=== PATIENT | male | born 1965 ===

== ENCOUNTER 2023-11-07 08:30 | Inpatient (IN) | payer OTHER ==
[2023-11-07] MEDS ORDERED: TOPROL XL25 M1 (09:25)
[2023-11-07] MEDS ORDERED: LEVO-T50 MCG PO (09:25)
[2023-11-07] MEDS ORDERED: BUPROPION XL450 MG PO (09:25)
[2023-11-07 09:26] LABS: HEMATOCRIT 37.2 % (39.0-48.0); MEAN CELL VOLUME 97.3 fL (80.0-100.00); MEAN CORPUSCULAR HEMOGLOBIN 34.1 pg (27.00-32.0); PLATELET COUNT 226 K/uL (150-450); RED BLOOD COUNT 3.82 M/uL (4.00-6.00)
[2023-11-07 09:28] LABS: PH,URINE 5.5 (5.0-8.0); URINE APPEARANCE Clear; URINE BILIRRUBIN Moderate (NEGATIVE); URINE BLOOD Small; URINE COLOR Dark Yellow; URINE GLUCOSE Negative (NEGATIVE); URINE KETONE Negative (NEGATIVE); URINE LEUKOCYTE Trace; URINE NITRATE Negative; URINE PROTEIN 30 (NEGATIVE)
[2023-11-07 09:29] LABS: URINE BACTERIA 32.7 uL (0.0-1933); URINE EPITHELIAL CELLS 6.3 uL (0.0-38.8); URINE RBC 27.1 uL (0.0-20.8); URINE WBC 25.6 uL (0.0-23.2)
[2023-11-07 09:33] LABS: URINE CAST 0.61 uL (0.0-1.40)
[2023-11-07 10:11] LABS: INR 1.02; PARTIAL THROMBOPLASTIN TIME 32.6 SECONDS (22.0-34.0); PROTHROMBIN TIME 10.7 SECONDS (9.0-11.5)
[2023-11-07 11:03] LABS: ALBUMIN 3.4 gm/dL (3.4-5.0); BILIRUBIN TOTAL 5.42 mg/dL (0.3-1.2); CALCIUM 9.8 mg/dL (8.5-10.1); CREATININE SERUM 0.98 mg/dL (0.70-1.30); GFR 78.83; GLOBULINA 4.6 G/DL (2.4-3.5); POTASSIUM 4.08 mEq/L (3.5-5.1)
[2023-11-12] MEDS ORDERED: ADVIL DUAL ACT1 EACH (15:47)
[2023-11-12] MEDS ORDERED: LEVOTHYROXINE150 MCG (15:47)
[2023-11-12] MEDS ORDERED: VITAMIN B-121000 MC1 (15:47)
[2023-11-12] MEDS ORDERED: NAPROXEN SODIU220 M1 (15:47)
[2023-11-12] MEDS ORDERED: BUPROPION XL150 MG (15:47)
[2023-11-12] MEDS ORDERED: ATORVASTATIN CA40 MG (15:47)
[2023-11-12] MEDS ORDERED: CEFOXITIN SODIUM 2,000 MG VIAL IV ONE ×2 (15:59→22:06)
[2023-11-12] MEDS ORDERED: MORPHINE SULFATE 4 MG/ML CARTRIDGE IV SCH (18:02)
[2023-11-12] MEDS ORDERED: FAMOTIDINE/PF 20 MG/2 ML VIAL IV SCH (21:00)
[2023-11-12] MEDS ORDERED: CEFOXITIN SODIUM 1,000 MG VIAL IV SCH (21:00)
[2023-11-12] MEDS ORDERED: hydrALAZINE HCL 20 MG VIAL ONE (21:27)
[2023-11-13 09:21] LABS: HEMATOCRIT 27.5 % (39.0-48.0); HEMOGLOBIN 9.6 g/dL (13-16.00); MEAN CELL VOLUME 96.7 fL (80.0-100.00); MEAN CORPUSCULAR HEMOGLOBIN 33.6 pg (27.00-32.0); MEAN CORPUSCULAR HGB CONC 34.7 g/dl (32.0-36.0); PLATELET COUNT 246 K/uL (150-450); RED BLOOD COUNT 2.85 M/uL (4.00-6.00); RED CELL DISTRIBUTION WIDTH 16.2 % (11.5-14.5)
[2023-11-13] MEDS ORDERED: MIDAZOLAM HCL 2 MG/2 ML VIAL IV ONE (12:30)
[2023-11-13] MEDS ORDERED: fentaNYL CITRATE 50 MCG/ML AMPUL IV PUSH ONE (12:30)
[2023-11-13] MEDS ORDERED: DIPHENHYDRAMINE HCL 50 MG/ML VIAL 1ML IV ONE (12:30)
[2023-11-13 12:38] LABS: BILIRUBIN TOTAL 4.57 mg/dL (0.3-1.2); CALCIUM 8.4 mg/dL (8.5-10.1); CREATININE SERUM 1.04 mg/dL (0.70-1.30); GFR 73.61; GLOBULINA 2.9 G/DL (2.4-3.5); POTASSIUM 3.85 mEq/L (3.5-5.1); TOTAL PROTEIN 4.9 gm/dL (6.4-8.2)
[2023-11-13] MEDS ORDERED: PHYTONADIONE 10 MG/ML AMPUL SUBCUTANEO NR (13:45)
[2023-11-13 21:28] LABS: RED BLOOD COUNT 2.09 M/uL (4.00-6.00)
[2023-11-13 21:31] LABS: HEMATOCRIT 20.4 % (39.0-48.0); HEMOGLOBIN 7.1 g/dL (13-16.00)
[2023-11-14 09:11] LABS: HEMATOCRIT 29.7 % (39.0-48.0); HEMOGLOBIN 10.2 g/dL (13-16.00); MEAN CELL VOLUME 90.7 fL (80.0-100.00); MEAN CORPUSCULAR HEMOGLOBIN 31.2 pg (27.00-32.0); MEAN CORPUSCULAR HGB CONC 34.4 g/dl (32.0-36.0); RED BLOOD COUNT 3.27 M/uL (4.00-6.00); RED CELL DISTRIBUTION WIDTH 19.2 % (11.5-14.5)
[2023-11-14 10:09] LABS: CALCIUM 8.6 mg/dL (8.5-10.1); CREATININE SERUM 0.93 mg/dL (0.70-1.30); GFR 83.74; POTASSIUM 3.87 mEq/L (3.5-5.1)
[2023-11-14 10:10] LABS: PLATELET COUNT 121 K/uL (150-450)
[2023-11-14] MEDS ORDERED: CEFOXITIN SODIUM 1,000 MG VIAL IV SCH (13:11)
== END 2023-11-14 16:28 | disposition home or self-care (01) | DRG 331 ==
LOC: SURH 11-12 08:30 → SURG 11-12 08:31 → O/R 11-12 08:31 → SURH 11-12 09:00 → SURG 11-12 19:33 → ICU 11-13 17:57
PROVIDERS: Internal Medicine; ADMIT Surgery; ATTEND Surgery
PROC: 0DBP4ZZ Excision of Rectum, Percutaneous Endoscopic Approach (ICD-10-PCS; 2023-11-12)
PROC: 0DJD8ZZ Inspection of Lower Intestinal Tract, Via Natural or Artificial Opening Endoscopic (ICD-10-PCS; 2023-11-12)
PROC: 0DTN4ZZ Resection of Sigmoid Colon, Percutaneous Endoscopic Approach (ICD-10-PCS; principal; 2023-11-12 09:00)
PROC: 0DJD8ZZ Inspection of Lower Intestinal Tract, Via Natural or Artificial Opening Endoscopic (ICD-10-PCS; 2023-11-13)
PROC: 4A12X4Z Monitoring of Cardiac Electrical Activity, External Approach (ICD-10-PCS; 2023-11-13)
PROC: 30233N1 Transfusion of Nonautologous Red Blood Cells into Peripheral Vein, Percutaneous Approach (ICD-10-PCS; 2023-11-13)
DX: C19 Malignant neoplasm of rectosigmoid junction (principal); I95.9 Hypotension, unspecified; D64.9 Anemia, unspecified